=== PATIENT | female | born 1985 | race African-American/Black ===

== ENCOUNTER 2020-03-09 12:00 | Inpatient (IN) | payer OTHER ==
[2020-03-08 15:17] VITALS: BMI 55.6
[2020-03-10] MEDS ORDERED: CITRIC ACID-SODIUM CITRATE 15 ML CUP PO ONE (06:14)
[2020-03-10] MEDS: LACTATED RINGERS 1,000 ML IV SCH ×4 (06:53→20:57)
[2020-03-10 06:56] LABS: Basophils % (A) 1 %; Eosinophils # (A) 0.3 k/uL (0-0.7); Eosinophils % (A) 4 %; HCT 40.4 % (34.0-46.0); HGB 12.9 gm/dL (11.4-16.0); Lymphocytes # (A) 2.1 k/uL (1.0-4.8); Lymphocytes % (A) 27 %; MCH 28.5 pg (25.0-35.0); MCHC 31.9 g/dL (31.0-37.0); MCV 89.4 fL (80.0-100.0); Mean Platelet Volume 8.4; Monocytes # (A) 0.4 k/uL (0-1.0); Monocytes % (A) 5 %; Neutrophils # (A) 4.9 k/uL (1.3-7.7); Neutrophils % (A) 64 %; Platelet Count 273 k/uL (150-450); RBC 4.52 m/uL (3.80-5.40); RDW 14.1 % (11.5-15.5); WBC 7.7 k/uL (3.8-10.6)
[2020-03-10] MEDS ORDERED: ceFAZolin 3 GM in SODIUM CHLORIDE 0.9% 100 ML IVPB ONE (07:00)
[2020-03-10] MEDS ORDERED: ZOLPIDEM 5 MG TAB PO PRN (07:18)
[2020-03-10] MEDS ORDERED: ACETAMINOPHEN TAB 325 MG TAB PO PRN (07:18)
[2020-03-10] MEDS ORDERED: diphenhydrAMINE 50 MG CAP PO PRN (07:18)
[2020-03-10] MEDS ORDERED: METOCLOPRAMIDE 5 MG/ML 2 ML VIAL IVP PRN (07:18)
[2020-03-10] MEDS ORDERED: NALOXONE 0.4 MG/ML 1 ML VIAL IV PRN ×2 (07:18→08:15)
[2020-03-10] MEDS ORDERED: IBUPROFEN 600 MG TAB PO PRN (07:18)
[2020-03-10] MEDS ORDERED: SIMETHICONE 80 MG CHEWABLE PO PRN (07:18)
[2020-03-10] MEDS ORDERED: diphenhydrAMINE 50 MG/ML 1 ML VIAL IVP PRN ×2 (07:18)
[2020-03-10] MEDS ORDERED: ONDANSETRON 4 MG/2 ML VIAL IVP PRN (07:18)
[2020-03-10] MEDS ORDERED: diphenhydrAMINE 25 MG CAP PO PRN (07:18)
[2020-03-10] MEDS ORDERED: NALBUPHINE 10 MG/ML (1 ML AMP) ONE (07:30)
[2020-03-10] MEDS ORDERED: OXYTOCIN 10 UNIT/ML 1 ML VIAL ONE (07:30)
[2020-03-10] MEDS ORDERED: OXYTOCIN 20 UNITS/1000 ML NS 1,000 ML IV SCH (07:30)
[2020-03-10] MEDS ORDERED: MORPHINE SULFATE (PF) 0.3 MG/0.3 ML SYR ONE (07:30)
[2020-03-10] MEDS ORDERED: fentaNYL (PF) 50 MCG/ML 2 ML AMP ONE (07:30)
[2020-03-10] MEDS ORDERED: ONDANSETRON 4 MG/2 ML VIAL ONE (07:30)
[2020-03-10] MEDS ORDERED: PHENYLEPHRINE-0.9% NACL SYG 1 MG/10 ML SYRINGE ONE (07:30)
[2020-03-10] MEDS ORDERED: ACETAMINOPHEN IV (For NPO) 1,000 MG in EMPTY BAG 1 BAG IVPB ONE (07:45)
[2020-03-10 08:12] LABS: Amphetamine Screen,Urine Not Detected (NotDetected); Barbiturate Screen,Urine Not Detected (NotDetected); Benzodiazepines Screen,Urine Not Detected (NotDetected); Cocaine Screen,Urine Not Detected (NotDetected); Methadone Screen, Urine Not Detected (NotDetected); Opiate Screen,Urine Not Detected (NotDetected); Oxycodone Screen, Urine Not Detected (NotDetected); Phencyclidine Screen,Urine Not Detected (NotDetected); Tricyclic Antidepressant,Urine Not Detected (NotDetected); Urn Cannabinoid Scrn Detected (NotDetected)
[2020-03-10] MEDS ORDERED: HYDROmorphone 0.5 MG/0.5 ML SYRINGE IVP PRN (08:15)
[2020-03-10] MEDS ORDERED: KETOROLAC 15 MG/ML 1 ML VIAL IVP PRN (08:15)
--- NOTE | 2020-03-10 08:18 | P.HPOB ---
History of Present Illness H&P Date: 03/10/20 Chief Complaint: IUP at 39 and 1/sevenths weeks, history of 2 This is a 35-year-old 4 para 2011 at 39 and one sevenths weeks with an estimated due date of 03/16. Patient has been receiving routine care with myself and has a history of 2 prior C-sections. Patient states she is done with childbearing and wishes tubal ligation with this . Patient notes good movement this morning, she denies contractions vaginal bleeding or loss of fluid. Patient does admit to marijuana use in the . Patient has been treated for Trichomonas 2 in addition. On blood work she has a blood type of A+, rubella status nonimmune, h epatitis B surface antigen negative, GBS positive, HIV negative, RPR nonreactive. Review of Systems Constitutional: Denies fatigue, Denies fever Ears, nose, mouth and throat: Denies headache Cardiovascular: Reports leg edema Respiratory: Denies dyspnea Gastrointestinal: Denies constipation, Denies diarrhea, Denies nausea, Denies vomiting Genitourinary: Reports Past Medical History Past Medical History: GERD/Reflux Additional Past Medical History / Comment(s): seizures as infant, past high blood pressure, gallstones, History of Any Multi-Drug Resistant Organisms: None Reported Past Surgical History: Section Past Anesthesia/Blood Transfusion Reactions: No Reported Reaction Past Psychological History: Anxiety Smoking Status: Never smoker Past Alcohol Use History: None Reported Past Drug Use History: Marijuana Additional Drug Use History / Comment(s): none used in past 6 months - Past Family History Mother Family Medical History: No Reported History Medications and Allergies Home Medications Medication Instructions Recorded Confirmed Type Pnv No.95/Ferrous Fum/Folic AC 1 each PO DAILY 03/08/20 03/10/20 History [ Multivitamin Tablet] Allergies Allergy/AdvReac Type Severity Reaction Status Date / Time No Known Allergies Allergy Verified 03/10/20 06:13 Exam Osteopathic Statement: *. No significant issues noted on an osteopathic structural exam other than those noted in the History and Physical/Consult. 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 heart tones returned be category 1 and she is not dal[place]. Results Result Diagrams: 03/10/20 06:45 Abnormal Lab Results - Last 24 Hours (Table) 03/10/20 Range/Units 07:23 U Marijuana (THC) Screen Detected H (NotDetected) Assessment and Plan (1) Term Current Visit: Yes Status: Acute Code(s): Z34.90 - ENCNTR FOR SUPRVSN OF NORMAL , UNSP, UNSP TRIMESTER SNOMED Code(s): 22777248 (2) Positive GBS test Current Visit: Yes Status: Acute Code(s): B95.1 - STREPTOCOCCUS, GROUP B, CAUSING DISEASES CLASSD ELSWHR SNOMED Code(s): 749388855 (3) H/O section Current Visit: Yes Status: Acute Code(s): Z98.891 - HISTORY OF UTERINE SCAR FROM PREVIOUS SURGERY SNOMED Code(s): 361630630 (4) Family planning Current Visit: Yes Status: Acute Code(s): Z30.09 - ENCOUNTER FOR OTH GENERAL CNSL AND ADVICE ON CONTRACEPTION SNOMED Code(s): 373754389 Plan: This 35-year-old 4 para 2012 at 39 and one sevenths weeks is admitted to labor and delivery for planned repeat section with tubal ligation. Patient has a history of marijuana use UDS will be obtained today. Patient in addition has been treated for Trichomonas 2. Patient is counseled on section and tubal ligation. Risks are reviewed including but not limited to infection, bleeding, damage to bladder, bowel, injury. Patient is counseled on failure rates of tubal ligation. Patient is counseled that if she misses a period with a positive UCG, she should be seen immediately. Patient states understanding of these risks and wishes to proceed.
--- NOTE | 2020-03-10 08:23 | P.OP ---
Date of Procedure: 03/10/20 Preoperative Diagnosis: IUP at 39 and 1/sevenths weeks, history of 2, family status complete. Postoperative Diagnosis: Same Procedure(s) Performed: Repeat section with tubal ligation Anesthesia: spinal Surgeon: Princess Henderson [employer] Handler #1: Adele Penn Estimated Blood Loss (ml): 351 IV fluids (ml): 700 Urine output (ml): 50 Pathology: none sent Condition: stable Disposition: observation Indications for Procedure: This 35-year-old 4 para 2011 with 2 prior C-sections presents for repeat section and tubal ligation as family status is complete. Operative Findings: Normal uterus tubes and ovaries are appreciated. Viable male delivered at 748, weight of 8 lbs. 10 oz. and Apgars of 9/9 at one and 5 minutes respect daily. Description of Procedure: Patient is taken back to the operating suite where spinal anesthesia was found to be adequate by the anesthesia department. She is then prepped and draped in normal sterile fashion in the dorsal supine position. A Pfannenstiel skin incision was made with the scalpel and carried through the underlying layer of fascia. The fascia was incised in the midline and the incision was extended laterally. The superior aspect of the fascial incision was then grasped with Clifton clamps, elevated and underlying rectus muscles dissected off sharply. Attention was then turned to the inferior aspect of the fascial incision which was grasped joby clamps, elevated and underlying rectus muscles dissected off sharply. The rectus muscles were in the midline the peritoneum was identified and entered. A hysterotomy incision was made in the lower segment of the uterus, amniotomy was performed and clear fluid was obtained. The incision was extended laterally. The head was then encountered in the lower uterine segment and delivered in the usual fashion. The umbilical cord was then doubly clamped and cut. The placenta was then delivered manually intact with a three-vessel cord being noted. The uterus was then delivered from the abdomen. The uterine incision was then closed with 0 Vicryl in a running locked fashion. Hemostasis was appreciated. The Filshie clip applicator was then opened and the left fallopian tube was grasped and clamped according to dye beck reel operator's instructions this was then repeated in the opposite side. Hysterotomy incision was inspected and hemostasis was appreciated the uterus was then returned to the abdomen. The gutters were then cleared of all clots and debris. The uterine incision was inspected and found to be hemostatic. The peritoneum was then loosely reapproximated. The fascia was then closed with 0 Vicryl in a running fashion from one lateral edge the midline and the other lateral edge the midline. The subcutaneous tissue was irrigated copiously and found to be hemostatic. The subcutaneous tissue was then closed with 3-0 Vicryl in a running fashion. The skin was then closed with 4-0 Vicryl in a subcuticular fashion. Steri-Strips and sterile dressing was applied. All counts were noted be correct 2 at the end of the procedure. Patient tolerated procedure well and was taken back to her delivery suite.
[2020-03-10] MEDS: SENNOSIDES-DOCUSATE SODIUM 1 EACH TAB PO SCH ×2 (08:51→20:55)
[2020-03-10] MEDS ORDERED: MEASLES-MUMPS-RUBELLA VACC/PF 12,500 UNIT/0.5 ML VIAL SQ ONE (11:07)
[2020-03-10] MEDS ORDERED: IBUPROFEN IV 600 MG in SODIUM CHLORIDE 0.9% 250 ML IV ONE (12:00)
[2020-03-10] MEDS: HYDROcodone/APAP 5-325MG 1 EACH TAB PO PRN (20:56)
[2020-03-11] MEDS: LACTATED RINGERS 1,000 ML IV SCH (00:49)
--- NOTE | 2020-03-11 06:51 | P.PN ---
Progress Note - Text 03/11/20 642am 35-year-old female status post with a spinal Duramorph. Patient seen and evaluated this morning, patient has a VAS of 7, she also is complaining of nausea immediately after the surgery, patient is also complaining of pruritus which should subside in 24 hours
[2020-03-11 06:57] LABS: Basophils % (A) 0 %; Eosinophils # (A) 0.1 k/uL (0-0.7); Eosinophils % (A) 1 %; HCT 36.6 % (34.0-46.0); HGB 11.6 gm/dL (11.4-16.0); Lymphocytes # (A) 1.8 k/uL (1.0-4.8); Lymphocytes % (A) 18 %; MCH 28.2 pg (25.0-35.0); MCHC 31.8 g/dL (31.0-37.0); MCV 88.6 fL (80.0-100.0); Mean Platelet Volume 7.7; Monocytes # (A) 0.6 k/uL (0-1.0); Monocytes % (A) 6 %; Neutrophils # (A) 7.3 k/uL (1.3-7.7); Neutrophils % (A) 74 %; Platelet Count 226 k/uL (150-450); RBC 4.13 m/uL (3.80-5.40); RDW 14.2 % (11.5-15.5); WBC 9.9 k/uL (3.8-10.6)
[2020-03-11] MEDS: SENNOSIDES-DOCUSATE SODIUM 1 EACH TAB PO SCH ×2 (07:48→20:36)
--- NOTE | 2020-03-11 13:22 | P.PNOBGPC ---
Subjective - Subjective Principal diagnosis: pod 1 rcs with tl Interval history: pt is doing well post operatively, she states her pain is well controlled. she is ambulating and voiding without difficulty. she is tolerating a regular diet without nausea or vomitting. lochia is minimal. she is bottlefeeding Patient reports: Reports appetite normal, Reports voiding normally, Reports pain well controlled, Reports ambulating normally : doing well Objective - Vital Signs Latest vital signs: Vital Signs Temp Pulse Resp BP Pulse Ox 03/11/20 12:00 97.8 F 72 16 112/64 99 03/11/20 08:00 98.3 F 80 18 125/75 98 03/11/20 04:00 98.2 F 70 16 115/66 100 03/11/20 00:00 98.7 F 64 16 112/65 99 03/10/20 21:00 97 03/10/20 20:00 98.7 F 68 16 108/67 97 03/10/20 17:00 98 03/10/20 16:00 98.1 F 98 16 116/69 03/10/20 15:00 16 Intake and Output 03/10/20 03/11/20 03/11/20 22:59 06:59 14:59 Output Total 800 1050 Balance -800 -1050 Output: Urine 800 1050 Other: # Voids 1 2 - Exam Extremities: Present: normal Abdomen: Present: normal appearance, soft Incision: Present: normal, dry Uterus: Present: normal, firm Assessment and Plan (1) Term Current Visit: Yes Status: Acute Code(s): Z34.90 - ENCNTR FOR SUPRVSN OF NORMAL , UNSP, UNSP TRIMESTER SNOMED Code(s): 69185544 (2) Positive GBS test Current Visit: Yes Status: Acute Code(s): B95.1 - STREPTOCOCCUS, GROUP B, CAUSING DISEASES CLASSD ELSR SNOMED Code(s): 481802104 (3) H/O section Current Visit: Yes Status: Acute Code(s): Z98.891 - HISTORY OF UTERINE SCAR FROM PREVIOUS SURGERY SNOMED Code(s): 384921358 (4) Family planning Current Visit: Yes Status: Acute Code(s): Z30.09 - ENCOUNTER FOR OT GENERAL CNSL AND ADVICE ON CONTRACEPTION SNOMED Code(s): 125463304 Plan: 35yo s/p repeat section with tubal ligation. she is doing well, will plan to continue with routine post operative care. Anticipate discharge home tomorrow.
[2020-03-11] MEDS: HYDROcodone/APAP 5-325MG 1 EACH TAB PO PRN ×2 (16:33→21:53)
[2020-03-12 00:53] VITALS: RESP 18; TEMP 98.1
[2020-03-12] MEDS: HYDROcodone/APAP 5-325MG 1 EACH TAB PO PRN (07:21)
[2020-03-12] MEDS: SENNOSIDES-DOCUSATE SODIUM 1 EACH TAB PO SCH (07:21)
--- NOTE | 2020-03-12 09:00 | P.DS ---
Providers Date of admission: 03/10/20 05:55 Expected date of discharge: 03/12/20 Attending physician: Princess Henderson Primary care physician: Stated None - Discharge Diagnosis(es) (1) Term Current Visit: Yes Status: Acute (2) Positive GBS test Current Visit: Yes Status: Acute (3) H/O section Current Visit: Yes Status: Acute (4) Family planning Current Visit: Yes Status: Acute Hospital Course: This is a 35-year-old 4 para 2011 at 39 and one sevenths weeks that presented to labor and delivery for planned repeat section with tubal ligation. Patient had been receiving routine care with the only complication noted positive trichomoniasis 2 and admitted marijuana use. Patient did receive routine care from myself. blood type A+. Group beta strep culture was noted to be negative at 36 weeks. Patient was admitted to labor and delivery and taken to the operating suite for planned repeat c esarean section with tubal ligation. Patient did well during the procedure for further details on the procedure please see the operative report. Patient's postoperative course has been uneventful. On this postop day #2 she is ambulatory and voiding without difficulty. She is tolerating a regular diet without nausea or vomiting. She states her pain is well-controlled. She denies concerns and would like discharge home. Patient Condition at Discharge: Good Plan - Discharge Summary Discharge Rx Participant: Yes New Discharge Prescriptions: No Action Pnv No.95/Ferrous Fum/Folic AC [ Multivitamin Tablet] 1 each PO DAILY Discharge Medication List Pnv No.95/Ferrous Fum/Folic AC [ Multivitamin Tablet] 1 each PO DAILY 03/08/20 [History] Follow up Appointment(s)/Referral(s): Princess Henderson DO [Doctor of Osteopathic Medicine] - 2 Weeks Patient Instructions/Handouts: (DC), (GEN) Discharge Disposition: HOME SELF-CARE
[2020-03-12 09:29] VITALS: BP 120/59; PULSE 78
[2020-03-12] MEDS: LACTATED RINGERS 1,000 ML IV SCH (12:09)
== END 2020-03-12 11:15 | disposition home or self-care (01) | DRG 784 ==
LOC: 4FBP 03-10 05:55
PROVIDERS: ADMIT Obstetrics & Gynecology Obstetrics; ATTEND Obstetrics & Gynecology Obstetrics
PROC: 0UL70CZ Occlusion of Bilateral Fallopian Tubes with Extraluminal Device, Open Approach (ICD-10-PCS; principal; 2020-03-10 07:30)
PROC: 10D00Z1 Extraction of Products of Conception, Low, Open Approach (ICD-10-PCS; principal; 2020-03-10 07:30)
DX: O34.211 Maternal care for low transverse scar from previous cesarean delivery (principal); O98.32 Other infections with a predominantly sexual mode of transmission complicating childbirth; O99.324 Drug use complicating childbirth; O26.62 Liver and biliary tract disorders in childbirth; A59.9 Trichomoniasis, unspecified; F12.90 Cannabis use, unspecified, uncomplicated; O99.824 Streptococcus B carrier state complicating childbirth; K21.9 Gastro-esophageal reflux disease without esophagitis; K80.20 Calculus of gallbladder without cholecystitis without obstruction; L29.9 Pruritus, unspecified; O99.62 Diseases of the digestive system complicating childbirth; O99.72 Diseases of the skin and subcutaneous tissue complicating childbirth; Z37.0 Single live birth; Z3A.39 39 weeks gestation of pregnancy; Z30.2 Encounter for sterilization; Z86.59 Personal history of other mental and behavioral disorders; Z86.79 Personal history of other diseases of the circulatory system
CPT/HCPCS: 80306; 85025; 86850; 86900; 86901; 90707

== ENCOUNTER 2022-04-09 20:45 | Emergency (ER) | payer OTHER ==
[2022-04-09 20:58] VITALS: TEMP 98.2
[2022-04-10] MEDS ORDERED: SODIUM CHLORIDE 0.9% 1,000 ML IV STA (00:10)
[2022-04-10] MEDS ORDERED: MORPHINE SULFATE 4 MG/ML SYRINGE IV STA (00:10)
[2022-04-10] MEDS ORDERED: ONDANSETRON 4 MG/2 ML VIAL IVP STA (00:10)
--- NOTE | 2022-04-10 00:31 | ED ---
General Adult HPI <JoerosemaryAgustin - Last Filed: 04/10/22 03:45> - General Source: patient, RN notes reviewed, old records reviewed Mode of arrival: ambulatory Limitations: no limitations <Keo Reyes - Last Filed: 04/11/22 06:34> - General Chief complaint: Abdominal Pain Stated complaint: Hernia Time Seen by Provider: 04/09/22 23:59 - History of Present Illness Initial comments: Patient is a 37-year-old female with past medical history remarkable for prior section as well as a mesh repair who presents emergency Department complaining of abdominal pain. States that site of her mesh. She believes she had the surgery here however we have no records of it. States she was told to c ome the emergency department if she recently has this type of abdominal pain at site of a mesh. States pain started today. Endorses nonbloody diarrhea as well as nausea with a few episodes of nonbilious nonbloody emesis. Endorses mild joint pain. Denies any shortness of breath or chest pain. Denies any sick contacts or fevers. Denies any urinary complaints. States the pain has been constant has not been intermittent. Denies any vaginal discharge or bleeding. Does not believe she is . Presents for further evaluation at this time. Cannot recall name of her surgeon. (Keo Reyes) - Related Data Home Medications Medication Instructions Recorded Confirmed Pnv No.95/Ferrous Fum/Folic AC 1 each PO DAILY 03/08/20 03/10/20 [ Multivitamin Tablet] Allergies Allergy/AdvReac Type Severity Reaction Status Date / Time No Known Allergies Allergy Verified 04/09/22 20:58 Review of Systems ROS Other: All systems not noted in ROS Statement are negative. <Agustin Munson - Last Filed: 04/10/22 03:45> ROS Other: All systems not noted in ROS Statement are negative. <Keo Reyes - Last Filed: 04/11/22 06:34> ROS Statement: Those systems with pertinent positive or pertinent negative responses have been documented in the HPI. Review of Systems: CONST: Denies fever EYES: Denies blurry vision ENT: Denies nasal congestion C/V: Denies Chest pain RESP: Denies shortness of breath GI: Endorses abdominal pain : Denies dysuria SKIN: Denies rash. MSK: Denies joint pain. NEURO: Denies headache (Keo Reyes) Past Medical History Past Medical History: GERD/Reflux Additional Past Medical History / Comment(s): seizures as infant, past high blood pressure, gallstones, History of Any Multi-Drug Resistant Organisms: None Reported Past Surgical History: Section Past Anesthesia/Blood Transfusion Reactions: No Reported Reaction Past Psychological History: Anxiety Smoking Status: Never smoker Past Alcohol Use History: Occasional Past Drug Use History: Marijuana - Past Family History Mother Family Medical History: No Reported History <Keo Reyes - Last Filed: 04/11/22 06:34> General Exam Limitations: no limitations <Keo Reyes - Last Filed: 04/11/22 06:34> - General Exam Comments Initial Comments: General: Appears in no acute distress. HEAD: Normal with no signs of head trauma. EYES: PERRLA, EOMI, conjunctiva normal, no discharge. ENT: Hearing grossly intact, normal oropharynx. RESPIRATORY: Clear breath sounds bilaterally. No wheezes, rales, or rhonchi. C/V: Regular rate and rhythm. S1 and S2 auscultated, no edema, peripheral pulses 2+ and intact throughout ABD: Abdomen soft, nondistended. Tender to palpation in the left lower, mid quadrants. Patient is obese. No peritoneal signs. No rebound tenderness. No flank pain. EXT: Normal range of motion, no obvious deformity SKIN: No rashes or lesions observed on exposed skin. NEURO: Alert and oriented 4. (Keo Reyes) Course Vital Signs 04/09/22 04/10/22 20:54 03:46 Temperature 98.2 F Pulse Rate 71 88 Respiratory 18 15 Rate Blood Pressure 131/80 131/74 O2 Sat by Pulse 98 99 Oximetry Medical Decision Making - Lab Data Result diagrams: 04/10/22 01:23 04/10/22 01:23 <Agustin Munson - Last Filed: 04/10/22 03:45> - Lab Data Result diagrams: 04/10/22 01:23 04/10/22 01:23 <Keo Reyes - Last Filed: 04/11/22 06:34> - Medical Decision Making This patient is signed out to me pending the results of her computed tomography scan. I did go and reevaluate the patient and she states that her symptoms have resolved. I reviewed the study results and the patient will follow up. We discussed appropriate further care as well as return parameters. (Agustin Munson) Based on patient's presentation and physical exam, I'm concerned for acute intra-abdominal process for current symptoms. I would like to obtain abdominal laboratory studies, Covid swab. We will also obtain CT abdomen and pelvis. Patient was empirically treated with IV fluids and medications. She was in agreement this plan. Vital signs are within acceptable limits. At this time it is the end of my shift. Workup is still pending at this time. Patient was signed out in stable condition to Dr. Munson pending workup. (Keo Reyes) - Lab Data Lab Results 04/10/22 04/10/22 04/10/22 Range/Units 01:23 01:23 01:23 WBC 15.5 H (3.8-10.6) k/uL RBC 4.55 (3.80-5.40) m/uL Hgb 13.6 (11.4-16.0) gm/dL Hct 41.3 (34.0-46.0) % MCV 90.7 (80.0-100.0) fL MCH 29.9 (25.0-35.0) pg MCHC 32.9 (31.0-37.0) g/dL RDW 13.8 (11.5-15.5) % Plt Count 331 (150-450) k/uL MPV 7.9 Neutrophils % 87 % Lymphocytes % 8 % Monocytes % 2 % Eosinophils % 1 % Basophils % 0 % Neutrophils # 13.6 H (1.3-7.7) k/uL Lymphocytes # 1.3 (1.0-4.8) k/uL Monocytes # 0.4 (0-1.0) k/uL Eosinophils # 0.2 (0-0.7) k/uL Basophils # 0.1 (0-0.2) k/uL PT 10.8 (9.0-12.0) sec INR 1.0 (<1.2) APTT 25.3 (22.0-30.0) sec Sodium 138 (137-145) mmol/L Potassium 3.9 (3.5-5.1) mmol/L Chloride 102 (98-107) mmol/L Carbon Dioxide 21 L (22-30) mmol/L Anion Gap 15 mmol/L BUN 6 L (7-17) mg/dL Creatinine 0.58 (0.52-1.04) mg/dL Est GFR (CKD-EPI)AfAm >90 (>60 ml/min/1.73 sqM) Est GFR (CKD-EPI)NonAf >90 (>60 ml/min/1.73 sqM) Glucose 106 H (74-99) mg/dL Plasma Lactic Acid Romeo (0.7-2.0) mmol/L Calcium 9.4 (8.4-10.2) mg/dL Total Bilirubin 0.5 (0.2-1.3) mg/dL AST 25 (14-36) U/L ALT 20 (4-34) U/L Alkaline Phosphatase 95 (38-126) U/L Total Protein 7.5 (6.3-8.2) g/dL Albumin 4.5 (3.5-5.0) g/dL Amylase 38 (30-110) U/L Lipase 43 (23-300) U/L HCG, Qual Not Detected Coronavirus (PCR) (Not Detectd) 04/10/22 04/10/22 Range/Units 01:23 01:23 WBC (3.8-10.6) k/uL RBC (3.80-5.40) m/uL Hgb (11.4-16.0) gm/dL Hct (34.0-46.0) % MCV (80.0-100.0) fL MCH (25.0-35.0) pg MCHC (31.0-37.0) g/dL RDW (11.5-15.5) % Plt Count (150-450) k/uL MPV Neutrophils % % Lymphocytes % % Monocytes % % Eosinophils % % Basophils % % Neutrophils # (1.3-7.7) k/uL Lymphocytes # (1.0-4.8) k/uL Monocytes # (0-1.0) k/uL Eosinophils # (0-0.7) k/uL Basophils # (0-0.2) k/uL PT (9.0-12.0) sec INR (<1.2) APTT (22.0-30.0) sec Sodium (137-145) mmol/L Potassium (3.5-5.1) mmol/L Chloride (98-107) mmol/L Carbon Dioxide (22-30) mmol/L Anion Gap mmol/L BUN (7-17) mg/dL Creatinine (0.52-1.04) mg/dL Est GFR (CKD-EPI)AfAm (>60 ml/min/1.73 sqM) Est GFR (CKD-EPI)NonAf (>60 ml/min/1.73 sqM) Glucose (74-99) mg/dL Plasma Lactic Acid Romeo 1.1 (0.7-2.0) mmol/L Calcium (8.4-10.2) mg/dL Total Bilirubin (0.2-1.3) mg/dL AST (14-36) U/L ALT (4-34) U/L Alkaline Phosphatase (38-126) U/L Total Protein (6.3-8.2) g/dL Albumin (3.5-5.0) g/dL Amylase (30-110) U/L Lipase (23-300) U/L HCG, Qual Coronavirus (PCR) Not Detected (Not Detectd) Disposition Is patient prescribed a controlled substance at d/c from ED?: No <Agustin Munson - Last Filed: 04/10/22 03:45> <Keo Reyes - Last Filed: 04/11/22 06:34> Clinical Impression: Abdominal pain Disposition: HOME SELF-CARE Condition: Good Instructions (If sedation given, give patient instructions): Abdominal Pain (ED) Referrals: Nonstaff,Physician [Primary Care Provider] - 1-2 days
[2022-04-10 01:29] LABS: Basophils # (A) 0.1 k/uL (0-0.2); Basophils % (A) 0 %; Eosinophils # (A) 0.2 k/uL (0-0.7); Eosinophils % (A) 1 %; HCT 41.3 % (34.0-46.0); HGB 13.6 gm/dL (11.4-16.0); Lymphocytes # (A) 1.3 k/uL (1.0-4.8); Lymphocytes % (A) 8 %; MCH 29.9 pg (25.0-35.0); MCHC 32.9 g/dL (31.0-37.0); MCV 90.7 fL (80.0-100.0); Mean Platelet Volume 7.9; Monocytes # (A) 0.4 k/uL (0-1.0); Monocytes % (A) 2 %; Neutrophils # (A) 13.6 k/uL (1.3-7.7); Neutrophils % (A) 87 %; Platelet Count 331 k/uL (150-450); RBC 4.55 m/uL (3.80-5.40); RDW 13.8 % (11.5-15.5); WBC 15.5 k/uL (3.8-10.6)
[2022-04-10 01:37] LABS: Partial Thromboplastin Time 25.3 sec (22.0-30.0); Prothrombin Time 10.8 sec (9.0-12.0)
[2022-04-10 01:53] LABS: ALT 20 U/L (4-34); AST 25 U/L (14-36); African American GFR (CKD) >90 (>60 ml/min/1.73 sqM); Albumin 4.5 g/dL (3.5-5.0); Alkaline Phosphatase 95 U/L (38-126); Amylase 38 U/L (30-110); Anion Gap 15 mmol/L; Blood Urea Nitrogen 6 mg/dL (7-17); Calcium 9.4 mg/dL (8.4-10.2); Carbon Dioxide 21 mmol/L (22-30); Chloride 102 mmol/L (98-107); Glucose 106 mg/dL (74-99); HCG,Qualitative Serum Not Detected; Lipase 43 U/L (23-300); Non-African American GFR(CKD) >90 (>60 ml/min/1.73 sqM); Potassium 3.9 mmol/L (3.5-5.1); Sodium 138 mmol/L (137-145); Total Bilirubin 0.5 mg/dL (0.2-1.3); Total Protein 7.5 g/dL (6.3-8.2)
--- NOTE | 2022-04-10 02:57 | CT ---
EXAMINATION TYPE: CT abdomen pelvis w con DATE OF EXAM: 04/10/2022 COMPARISON: None HISTORY: mid abd pain CT DLP: 2252.3 mGycm Automated exposure control for dose reduction was used. CONTRAST: Performed with IV Contrast, patient injected with 100 mL of Isovue 300. Images obtained from the diaphragm to the floor the pelvis with the IV contrast. The lung bases are clear. No pleural effusion. Heart is borderline enlarged. No pericardial effusion. Liver spleen pancreas stomach appear intact. There are numerous cholesterol gallstones. The bile ulysses ts are not dilated. Liver is moderately enlarged and measures 24.5 cm. Spleen has normal size. There is no adrenal mass. Kidneys show satisfactory contrast opacification. No hydronephrosis. Append ix is medial and posterior and appears normal. There is no mesenteric edema. No ascites or free air. No sign of a bowel obstruction. Bladder distends smoothly. No inguinal hernia. Uterus is anteverted. No free fluid in the pelvis. No pelvic mass. The lumbar vertebrae have normal alignment. Disc spaces are fairly normal. No compressio n fracture. The bony pelvis is intact. The hip joints are intact. Delayed images show normal renal ex cretion. IMPRESSION: Cholelithiasis. Hepatomegaly with no focal liver defect.
[2022-04-10 03:47] VITALS: BP 131/74; PULSE 88; RESP 15
== END 2022-04-10 03:54 | disposition home or self-care (01) ==
LOC: EC 20:45
DX: R10.9 Unspecified abdominal pain (principal); K21.9 Gastro-esophageal reflux disease without esophagitis; F41.9 Anxiety disorder, unspecified; F12.90 Cannabis use, unspecified, uncomplicated; Z79.899 Other long term (current) drug therapy; Z20.822 Contact with and (suspected) exposure to COVID-19
CPT/HCPCS: 36415; 80053; 82150; 83605; 83690; 85025; 85610; 85730; 84703; 87635; 74177; 99284; 96374; 96375; 96361; J2270; J2405; Q9967